=== PATIENT | male | born 1980 | race Caucasian/White ===

== ENCOUNTER 2020-12-12 16:04 | Emergency (ER) | payer SELFPAY ==
[~2020-12-12] VITALS: Ht 193 cm; Wt 100.0 kg
[2020-12-12 19:17] VITALS: BP 119/75
== END 2020-12-12 19:19 | disposition home or self-care (01) ==
LOC: EMS 16:04
DX: T16.2XXA Foreign body in left ear, initial encounter (principal); F12.90 Cannabis use, unspecified, uncomplicated; W45.8XXA Other foreign body or object entering through skin, initial encounter; Y93.89 Activity, other specified; Y92.89 Other specified places as the place of occurrence of the external cause; Y99.8 Other external cause status
CPT/HCPCS: 69200; 99284; Z7502